=== PATIENT | male | born 1980 | race Caucasian/White ===

== ENCOUNTER → 2016-08-30 | Outpatient (CLI) | payer BC ==
[~2016-08-30] MED LIST: ALEVE PO; DOXYCYCLINE HY100 MG PO; HIGH CHOLESTEROL; NAPROSYN500 MG PO; PERCOCET 5/31 TABLET PO; PREDNISONE10 M1 PO; SOMA250 MG PO; SUBOXONE 8 MG-1 EAC2 SL; WELLBUTRIN XL300 MG PO
== END | disposition home or self-care (01) ==
LOC: CDC 13:15
DX: Z01.810 Encounter for preprocedural cardiovascular examination (principal); J37.0 Chronic laryngitis
CPT/HCPCS: 93000

== ENCOUNTER 2016-09-01 10:23 | Day surgery (SDC) | payer BC ==
[~2016-09-01] VITALS: Ht 185.4 cm; Wt 91.0 kg
[~2016-09-01 10:23] MED LIST changes: -DOXYCYCLINE HY100 MG PO
[2016-09-01] MEDS ORDERED: DOXYCYCLINE HY100 MG PO (10:46)
[2016-09-01 10:47] VITALS: BP 128/77
== END 2016-09-01 12:09 | disposition home or self-care (01) ==
LOC: SDC
PROC: 0CJYXZZ Inspection of Mouth and Throat, External Approach (ICD-10-PCS; principal; 2016-09-01)
DX: J37.0 Chronic laryngitis (principal); J31.2 Chronic pharyngitis; Z53.09 Procedure and treatment not carried out because of other contraindication; F55.8 Abuse of other non-psychoactive substances; F19.10 Other psychoactive substance abuse, uncomplicated; F11.20 Opioid dependence, uncomplicated; F17.200 Nicotine dependence, unspecified, uncomplicated; Z81.1 Family history of alcohol abuse and dependence
CPT/HCPCS: J0330; J2250; J2405; J3010